=== PATIENT | male | born 1970 | race Caucasian/White ===

== ENCOUNTER 2019-09-07 12:37 | Emergency (ER) | payer OTHER, SELFPAY | END 2019-09-07 13:55 | disposition home or self-care (01) | PROVIDERS: Emergency Provider Nurse Practitioner Family; Family Provider Internal Medicine; Visit Provider Nurse Practitioner Family | DX: M77.9 Enthesopathy, unspecified (principal) | CPT/HCPCS: 73030; 93005; 96372; 99284; J1100; J1885 ==

== ENCOUNTER 2019-09-09 11:09 | Emergency (ER) | payer SELFPAY | END 2019-09-09 14:23 | disposition home or self-care (01) | PROVIDERS: Emergency Provider Physician Assistant; Family Provider Internal Medicine; Visit Provider Physician Assistant | DX: M77.9 Enthesopathy, unspecified (principal); I10 Essential (primary) hypertension; E78.5 Hyperlipidemia, unspecified; M19.90 Unspecified osteoarthritis, unspecified site; Z87.891 Personal history of nicotine dependence ==

== ENCOUNTER 2019-09-22 10:25 | Outpatient (CLI) | payer OTHER, SELFPAY ==
--- NOTE | 2019-09-22 10:41 | MR_ITS ---
WS: [id number] MRI CERVICAL SPINE NONCONTRAST TECHNIQUE: Sagittal T1, T2 and STIR imaging. Axial T2, gradient, and fiesta imaging. CLINICAL INFORMATION: CERVICAL DISC DISORDER W/RADICULOPATHY COMPARISON: None. FINDINGS: Images moderately degraded by patient motion. Straightening of the normal cervical lordosis. Disc bulging worse at C3-C4 C5-C6 and C6-7. C2-C3: Small central disc protrusion. Slight effacement of ventral thecal sac. Mild facet arthropathy . Mild left and no significant right foraminal narrowing. C3-C4: Mild disc bulging with a small central protrusion. Mild to moderate central canal stenosis. Sl ight contact of the cervical cord. Moderate right greater than left bony foraminal narrowing. Moderat e facet arthropathy. C4-C5: Left pericentral disc osteophyte protrusion with moderate central canal stenosis. Indentation left ventral cervical cord. Mild to moderate left foraminal narrowing. Moderate facet arthropathy. C5-C6: Disc osteophyte complex with mild central canal stenosis. Moderate left and no significant rig ht foraminal narrowing. Moderate facet arthropathy. C6-C7: Left proximal foraminal disc protrusion with moderate central canal stenosis. Severe left fora [place]sa narrowing. Mild right foraminal narrowing. C7-T1: Mild disc bulging with endplate ridging. Mild bilateral foraminal narrowing. MR/MR cervical spin wo con* [id number] IMPRESSION: 1. Straightening of the normal cervical lordosis. Mild to moderate central can al stenosis due to small disc protrusions at C3-C4 left C4-C5 and left C6-C7. 2. Left proximal foraminal disc protrusion C6-C7 extends into the left neural foramen with severe left foraminal narrowing. 3. Left pericentral disc protrusion C4-C5 with contact and slight indentation left ventral cervical cord. 4. Otherwise multilevel bony foraminal narrowing described above.
== END 2019-09-22 10:26 | disposition home or self-care (01) ==
LOC: RADSHAW 10:28
PROVIDERS: Family Provider Internal Medicine; PCP Internal Medicine; Visit Provider Internal Medicine
DX: M50.223 Other cervical disc displacement at C6-C7 level (principal); M50.10 Cervical disc disorder with radiculopathy, unspecified cervical region
CPT/HCPCS: 72141

== ENCOUNTER 2020-09-09 11:43 | Outpatient (CLI) | payer OTHER, SELFPAY ==
--- NOTE | 2020-09-09 11:56 | XR_ITS ---
WS: [id number] Exam: XR ribs LT 2V* [id number] Date/Time of Exam: 09/09/2020 12:10 PM Reason For Exam: t No acute left rib fracture. The lungs are clear and fully expanded. No pulmonary or pleural reactive changes. Normal cardiomediastinal structures. XR/XR ribs LT 2V* [id number] IMPRESSION: 1. Negative left rib study
== END 2020-09-09 11:44 | disposition home or self-care (01) ==
PROVIDERS: PCP Internal Medicine; Visit Provider Family Medicine
DX: S27.9XXA Injury of unspecified intrathoracic organ, initial encounter (principal); X58.XXXA Exposure to other specified factors, initial encounter
CPT/HCPCS: 71100

== ENCOUNTER → 2021-03-23 15:34 | Outpatient (BNVA) | payer OTHER, SELFPAY | PROVIDERS: PCP Internal Medicine; Visit Provider Nurse Practitioner Family | DX: Z11.52 Encounter for screening for COVID-19 (principal); Z20.822 Contact with and (suspected) exposure to COVID-19 | CPT/HCPCS: 87635 ==

== ENCOUNTER 2021-03-31 18:35 | Emergency (ER) | payer OTHER, SELFPAY ==
[2021-03-31 19:10] VITALS: BP 102/67; PULSE 78; RESP 22; TEMP 38.9; O2SAT 94; BMI 35.6
--- NOTE | 2021-03-31 20:49 | XRR_ITS ---
PROCEDURE INFORMATION: Exam: XR Chest Exam date and time: 03/31/2021 8:49 PM Age: 50 years old Clinical indication: Cough and shortness of breath; Patient HX: Covid +, cough, SOB, fever, weakness TECHNIQUE: Imaging protocol: XR of the chest. Views: 1 view. COMPARISON: CR Chest 1 [place] [id number] 09/09/2019 12:04 PM FINDINGS: Lungs: Patulous basilar consolidations. Pleural spaces: Unremarkable. No pleural effusion. No pneumothorax. Heart/Mediastinum: Unremarkable. No cardiomegaly. Bones/joints: Sequela of ACDF in the lower cervical spine. XR/XR chest 1V portable [id number] IMPRESSION: Patulous basilar consolidations consistent with COVID pneumonia.
--- NOTE | 2021-03-31 20:49 | ECG_ITS ---
[facility] Test Date: 2021-03-31 Pat Name: Khang Lui Department: Room: Gender: Male [employer] Computer: : [id number] Requested By: John Jeter Order Number: [id number] Fine MD: Philippe Lepe M.D. Measurements Intervals [place] Rate: 73 P: 73 FL: 161 QRS: 89 QRSD: 111 T: 87 QT: 385 QTc: 425 Interpretive Statements SINUS RHYTHM MODERATE INTRAVENTRICULAR CONDUCTION DELAY [110+ ms QRS DURATION] WARNING: DATA QUALITY MAY AFFECT INTERPRETATION Compared to ECG 09/09/2019 13:30:24 Intraventricular conduction delay now present Electronically Signed On 04-01-2021 14:53:53 CDT by Philippe Lepe M.D. [id number]
--- NOTE | 2021-03-31 20:50 | ED_ITS ---
HPI - COVID General: Chief Complaint: COVID symptoms Stated Complaint: COVID +/TROUBLE WALKING,WEAKNESS Time Seen by Provider: 03/31/21 20:47 Triage information: Has fever, cough or shortness of breath . Exposure to COVID + person last 14 days History of Present Illness: HPI Narrative: This patient is a 50-year-old male who presents to the emergency department complaining of severe fatigue states he is so fatigued now that he can hardly walk. Patient states he was diagnosed with Covid 1 week ago. Still has persistent cough. States lack of energy and intermittent fevers. Will do medical evaluation treat as needed complaint: known COVID positive COVID 19 common symptoms: positive fever(s), non-productive cough, fatigue and body aches; negative chills, productive cough, dyspnea, headache(s), throat pain, nausea or vomiting COVID 19 other sytmptoms: negative chest pain COVID Results: SARS-CoV-2 RNA (RT-PCR) Detected (NOT DETECTED) A 03/23/21 15:34 03/23/21 Review of Systems General: Reports: 10 or more systems reviewed and unremarkable except in HPI and below Const: Reports: fever(s), body aches and fatigue; Denies: chills Eyes: Denies: change in vision or blurry vision ENMT: Denies: throat pain, hoarseness or mouth pain Card: Denies: chest pain, palpitations, irregular heart rhythm, edema, swelling of feet/ankles or lightheadedness Resp: Reports: non-productive cough; Denies: dyspnea, productive cough, wheezing or pain on inspiration GI: Denies: abdominal pain, nausea or vomiting : Denies: flank pain, dysuria, urinary frequency, urinary urgency or urinary hesitancy Musc: Denies: neck pain, back pain, extremity pain, extremity swelling, joint pain, joint swelling, joint redness, joint warmth or limited range of motion Skin/Breast: Denies: rash, pruritus, erythema or skin tenderness Neuro: Denies: headache(s), numbness in extremities or weakness in extremities Psych: Denies: anxiety or depression PFS ED PFSH: Social History Smoking and tobacco status: current every day smoker smokeless tobacco Second hand smoke exposure: No Alcohol intake: never Desire information about alcohol rehabilitation?: No Desire information about substance/drug rehabilitation?: No Physical Exam Const: COMMON NORMALS: no acute distress, average body habitus, patient oriented x3, no limitations, healthy appearing, alert and well nourished HENMT: COMMON NORMALS: normocephalic, atraumatic, hearing grossly normal bilaterally, external ears normal, EAC's normal, TM's normal bilaterally, Normal external nose present, Normal nasal mucous membranes and turbinates present, moist oral mucous membranes, oropharynx normal, dentition normal and gingiva normal HEAD & SCALP: normocephalic and atraumatic NOSE: Normal external nose present and Normal nasal mucous membranes and turbinates present EXTERNAL EAR: Yes external ears normal EXTERNAL AUDITORY CANAL: EAC's normal TYMPANIC MEMBRANE: TM's normal bilaterally Neck/C-Spine: COMMON NORMALS: full ROM, no lymphadenopathy, supple, no meningeal signs, no JVD, Thyroid normal and No carotid bruits THYROID: Thyroid normal Chest: COMMONS NORMALS: normal inspection of the chest, normal palpation of entire chest wall, normal inspection of the breasts and normal palpation of the breasts Breast/axilla inspection: Yes normal inspection of the breasts BREAST/AXILLA PALPATION: Yes normal palpation of the breasts Resp: COMMON NORMALS: normal respiratory effort, No retractions, No use of accessory muscles, clear to auscultation bilaterally and percussion normal AUSCULTATION: clear to auscultation bilaterally PERCUSSION: percussion normal Cardio: COMMON NORMALS: no JVD, regular rate, regular rhythm, S1 normal heart sound present, S2 normal heart sound present, No gallops present (Cardio), No clicks present (Cardio), No murmurs present (Cardio), No rub (Cardio) and Peripheral pulses 2+ throughout RATE: regular rate RHYTHM: regular rhythm HEART SOUNDS: S1 normal heart sound present and S2 normal heart sound present PERIPHERAL PULSES: Peripheral pulses 2+ throughout GI: COMMON NORMALS: Normal to inspection, nondistended, normoactive bowel sounds present, Soft to palpation, non-tender, No hepatosplenomegaly present, no masses and no bruits PALPATION: Yes Soft to palpation and Yes No hepatosplenomegaly present : COMMON NORMALS: Yes no CVA tenderness BLADDER/KIDNEY EXAM: Yes no CVA tenderness Back/Pelvis: COMMON NORMALS: no CVA tenderness, thoracic and lumbar spine normal to inspection, no thoracic nor lumbar tenderness, thoraco-lumbar ROM normal and straight leg raise negative bilaterally Extremity: COMMON NORMALS: normal to inspection, full ROM, capillary refill normal, no joint enlargement, no clubbing, cyanosis or edema, no calf tenderness and no pedal edema Neuro: COMMON NORMALS: patient oriented x3 SENSORIUM/ORIENTATION: Yes alert MENINGEAL SIGNS: Yes no meningeal signs Course Reevaluation(s): Reevaluation #1: Patient does have Covid infection that he has had for the past week. Patient is viral syndrome. Patient is encouraged p.o. fluids cool-mist humidifier as needed take all medications as instructed follow-up with PCP after quarantine is over and symptom-free. May return to the emergency department if needed. Time: 22:32 Vital Signs: Vital signs: Vital Signs Temperature 102.1 F H 03/31/21 19:10 Pulse Rate 76 03/31/21 21:29 Respiratory Rate 20 H 03/31/21 21:29 Blood Pressure 137/81 03/31/21 21:29 Pulse Oximetry 96 03/31/21 21:29 MDM - COVID MDM Narrative: Medical decision making narrative: Patient does have Covid infection that he has had for the past week. Patient is viral syndrome. Patient is encouraged p.o. fluids cool-mist humidifier as needed take all medications as instructed follow-up with PCP after quarantine is over and symptom-free. May return to the emergency department if needed. Differential Diagnosis: Differential diagnosis: Likely COVID 19, other viral infection and pneumonia Medical Records: Attestation: I reviewed the patient's medical records. Lab Data: Attestation: I reviewed the patient's lab results. Labs: Lab Results 03/31/21 03/31/21 03/31/21 Range/Units 21:28 21:28 21:28 WBC 6.3 (4.0-10.0) 10^3/ uL RBC 5.49 H (4.1-5.3) 10^6/u L Hgb 17.3 H (11.7-16.6) g/dL Hct 49.8 (42.0-52.0) % MCV 90.7 (80-94) fL MCH 31.5 (28.0-34.0) pg MCHC 34.7 (30.0-36.0) g/dL RDW 12.4 (12.1-15.1) % Plt Count 201 (130-400) 10^3/c mm MPV 10.8 H (7.4-10.4) fL Neut % (Auto) 84.3 % Lymph % (Auto) 8.4 % [place] % (Auto) 6.8 % Eos % (Auto) 0.0 % Baso % (Auto) 0.2 % Neut # (Auto) 5.33 (1.8-7.7) 10^3/u L Lymph # (Auto) 0.5 L (0.8-4.8) 10^3/u L [place] # (Auto) 0.4 (0.2-0.9) 10^3/u L Eos # (Auto) 0.0 (0.0-0.8) 10^3/u L Baso # (Auto) 0.0 (0.0-0.1) 10^3/u L Nucleated RBC % (a uto) 0 % Nucleated RBCs # 0.0 /100WBC PT 13.90 (12.1-14.9) SECO NDS INR 1.03 (0.8-1.2) APTT 33.4 (23.9-36.7) SECO NDS D-Dimer 0.40 (0-0.59) ug/mIFE U Specimen Type Sample Site ABG pH (7.35-7.45) ABG pCO2 (35-45) mmHg ABG pO2 (80.0-100.0) mmH g ABG HCO3 (22-26) mmol/L ABG O2 Saturation ABG Base Excess (-2.0-2.0) mmol/ L Lenny Test A-a O2 Gradient (5-10) mmHg Hematocrit (42-52) % Hgb O2 Saturation (95-100) % Carboxyhemoglobin (0.4-20.1) %THgb Methemoglobin (0.4-1.5) % Total Hemoglobin (14-18) g/dL Ionized Calcium (1.1-1.4) mmol/L O2 Delivery Device Cloth Colorer ID Sodium 132 L (136-145) mmol/L Potassium 4.5 (3.5-5.1) mmol/L Chloride 97 L (98-107) mmol/L Carbon Dioxide 22 (22-29) mmol/L Anion Gap 17.5 (5-19) BUN 17 (6-20) mg/dL Creatinine 0.9 (0.7-1.2) mg/dL GFR Calculation 89.7 L (90-130) mL/min Glucose 94 (65-115) mg/dL Calculated Osmolal ity 275 L (285-295) mOsm/k g Calcium 8.0 L (8.5-10.5) mg/dL Total Bilirubin 0.5 (0.15-1.2) mg/dL AST 99 H (0-40) U/L ALT 88 H (0-41) U/L Alkaline Phosphata se 113 (40-130) IU/L Creatine Kinase 129 (39-308) U/L Total Protein 7.1 (6.6-8.7) g/dL Albumin 3.6 (3.5-5.2) g/dL Globulin 3.5 (1.3-4.6) g/dL 03/31/21 Range/Units 22:10 WBC (4.0-10.0) 10^3/ uL RBC (4.1-5.3) 10^6/u L Hgb (11.7-16.6) g/dL Hct (42.0-52.0) % MCV (80-94) fL MCH (28.0-34.0) pg MCHC (30.0-36.0) g/dL RDW (12.1-15.1) % Plt Count (130-400) 10^3/c mm MPV (7.4-10.4) fL Neut % (Auto) % Lymph % (Auto) % [place] % (Auto) % Eos % (Auto) % Baso % (Auto) % Neut # (Auto) (1.8-7.7) 10^3/u L Lymph # (Auto) (0.8-4.8) 10^3/u L [place] # (Auto) (0.2-0.9) 10^3/u L Eos # (Auto) (0.0-0.8) 10^3/u L Baso # (Auto) (0.0-0.1) 10^3/u L Nucleated RBC % (a uto) % Nucleated RBCs # /100WBC PT (12.1-14.9) SECO NDS INR (0.8-1.2) APTT (23.9-36.7) SECO NDS D-Dimer (0-0.59) ug/mIFE U Specimen Type Arterial Sample Site Brachial, right ABG pH 7.43 (7.35-7.45) ABG pCO2 34.5 L (35-45) mmHg ABG pO2 67.8 L (80.0-100.0) mmH g ABG HCO3 23.0 (22-26) mmol/L ABG O2 Saturation 95.3 ABG Base Excess -0.6 (-2.0-2.0) mmol/ L Lenny Test N/a A-a O2 Gradient 5.1 (5-10) mmHg Hematocrit 51.4 (42-52) % Hgb O2 Saturation 94.0 L (95-100) % Carboxyhemoglobin 0.6 (0.4-20.1) %THgb Methemoglobin 0.8 (0.4-1.5) % Total Hemoglobin 16.8 (14-18) g/dL Ionized Calcium 1.2 (1.1-1.4) mmol/L O2 Delivery Device Room air Cloth Colorer ID Hinja Sodium 132.0 (136-145) mmol/L Potassium 4.0 (3.5-5.1) mmol/L Chloride (98-107) mmol/L Carbon Dioxide (22-29) mmol/L Anion Gap (5-19) BUN (6-20) mg/dL Creatinine (0.7-1.2) mg/dL GFR Calculation (90-130) mL/min Glucose 93.0 (65-115) mg/dL Calculated Osmolal ity (285-295) mOsm/k g Calcium (8.5-10.5) mg/dL Total Bilirubin (0.15-1.2) mg/dL AST (0-40) U/L ALT (0-41) U/L Alkaline Phosphata se (40-130) IU/L Creatine Kinase (39-308) U/L Total Protein (6.6-8.7) g/dL Albumin (3.5-5.2) g/dL Globulin (1.3-4.6) g/dL Imaging Data: CXR: Attestation: I personally reviewed and interpreted this imaging study as follows: Radiologist's impression: FINDINGS: Lungs: Patulous basilar consolidations. Pleural spaces: Unremarkable. No pleural effusion. No pneumothorax. Heart/Mediastinum: Unremarkable. No cardiomegaly. Bones/joints: Sequela of ACDF in the lower cervical spine. XR/XR chest 1V portable [id number] IMPRESSION: Patulous basilar consolidations consistent with COVID pneumonia. EKG Data: EKG 1: Attestation: I personally reviewed and interpreted this EKG as follows: EKG interpretation date: 03/31/21 EKG interpretation time: 22:10 Prior EKG tracings: not available for review Interpretation: Sinus rhythm heart rate 73 moderate interventricular conduction delay. COVID Results: SARS-CoV-2 RNA (RT-PCR) Detected (NOT DETECTED) A 03/23/21 15:34 03/23/21 Discharge Plan Discharge Patient Disposition: Home Clinical Impression: Upper respiratory infection, COVID-19 Condition: Stable Prescriptions: No Action methocarbamol [Robaxin-750] 750 mg tablet 750 mg PO TID 6 Days Qty: 18 RF: 0 baclofen 10 mg tablet 10 mg PO TID RF: 0 gabapentin 300 mg tablet 300 mg PO BID RF: 0 ketorolac 10 mg tablet 10 mg PO TID PRN (Reason: pain) 5 Days Qty: 15 RF: 1 Discharge Orders: Discharge ED (Routine); Ordered 03/31/21 Ordered By: John Jeter Referrals: Eduarda Price MD [Primary Care Provider] - Discharge Diet: Advance as tolerated Discharge Activity: Resume usual activity Patient Instructions: Opioid Safety Activity Restrictions/Additional Instructions: Patient is encouraged p.o. fluids cool-mist humidifier as needed take all medications as instructed follow-up with PCP after quarantine is over and symptom-free. May return to the emergency department if needed. Coding Level of Care Code ED Contract Associate for [employer] F[employer] Exam Comprehensive
[2021-03-31 21:28] VITALS: O2SAT 95
[2021-03-31 21:29] VITALS: BP 137/81; PULSE 76; RESP 20; O2SAT 96
[2021-03-31] MEDS: sodium chloride 0.9% 1,000 ML 999 ML IV (21:30)
[2021-03-31 21:32] LABS: Basophils % 0.2 %; Hematocrit 49.8 % (42.0-52.0); Hemoglobin 17.3 g/dL (11.7-16.6); Lymphocytes # 0.5 10^3/uL (0.8-4.8); Lymphocytes % 8.4 %; Mean Corpuscular HGB Conc 34.7 g/dL (30.0-36.0); Mean Corpuscular Hemoglobin 31.5 pg (28.0-34.0); Mean Corpuscular Volume 90.7 fL (80-94); Mean Platelet Volume 10.8 fL (7.4-10.4); Monocytes # 0.4 10^3/uL (0.2-0.9); Monocytes % 6.8 %; Neutrophils # 5.33 10^3/uL (1.8-7.7); Neutrophils % 84.3 %; Nucleated Red Blood Cells % 0 %; Platelet Count 201 10^3/cmm (130-400); Red Blood Count 5.49 10^6/uL (4.1-5.3); Red Cell Distribution Width 12.4 % (12.1-15.1); White Blood Count 6.3 10^3/uL (4.0-10.0)
[2021-03-31 21:54] LABS: INR 1.03 (0.8-1.2)
[2021-03-31 21:55] LABS: Partial Thromboplastin Time 33.4 SECONDS (23.9-36.7)
[2021-03-31 21:58] LABS: Alanine Aminotransferase 88 U/L (0-41); Albumin Level 3.6 g/dL (3.5-5.2); Alkaline Phosphatase 113 IU/L (40-130); Anion Gap 17.5 (5-19); Aspartate Amino Transferase 99 U/L (0-40); Blood Urea Nitrogen 17 mg/dL (6-20); Carbon Dioxide 22 mmol/L (22-29); Chloride 97 mmol/L (98-107); Creatine Phosphokinase 129 U/L (39-308); Globulin 3.5 g/dL (1.3-4.6); Glomerular Filtration Rate 89.7 mL/min (90-130); Glucose 94 mg/dL (65-115); Osmolality Calculated 275 mOsm/kg (285-295); Potassium 4.5 mmol/L (3.5-5.1); Sodium 132 mmol/L (136-145); Total Bilirubin 0.5 mg/dL (0.15-1.2); Total Protein 7.1 g/dL (6.6-8.7)
[2021-03-31 22:14] LABS: ABG PCO2 34.5 mmHg (35-45); ABG PH Result 7.43 (7.35-7.45); Alveolar-Arterial Oxygen Gradi 5.1 mmHg (5-10); Arterial Blood Gas Hematocrit 51.4 % (42-52); Base Excess ABG -0.6 mmol/L (-2.0-2.0); Blood Gas Sample Site Brachial, right; Blood Gas Sample Type Arterial; Carboxyhemoglobin 0.6 %THgb (0.4-20.1); Ionized Calcium Level - ABG 1.2 mmol/L (1.1-1.4); Methemoglobin 0.8 % (0.4-1.5); Oxygen Device ROOM AIR; Oxygen Saturation ABG 95.3; PO2 ABG 67.8 mmHg (80.0-100.0); Total Hemoglobin 16.8 g/dL (14-18)
[2021-03-31 22:53] VITALS: BP 128/79; PULSE 79; O2SAT 96
== END 2021-03-31 22:53 | disposition home or self-care (01) ==
PROVIDERS: Emergency Provider Emergency Medicine; PCP Family Medicine
DX: U07.1 COVID-19 (principal); J06.9 Acute upper respiratory infection, unspecified; F17.200 Nicotine dependence, unspecified, uncomplicated
CPT/HCPCS: 36600; 71045; 80051; 80053; 82330; 82550; 82805; 85025; 85378; 85610; 85730; 93005; 96360; 99283; J7030

== ENCOUNTER 2022-10-16 18:46 | Emergency (ER) | payer OTHER, SELFPAY ==
[2022-10-16 18:52] VITALS: BP 165/99; PULSE 72; RESP 16; TEMP 37.3; O2SAT 100; BMI 36.9
--- NOTE | 2022-10-16 19:02 | ED_ITS ---
HPI - Back Pain/Injury General: Chief Complaint: Back Pain/Injury Stated Complaint: Injury Lower Back Time Seen by Provider: 10/16/22 19:02 History of Present Illness: Patient comes in today with complaints of mid to low back pain. Patient states that he was working on a tractor since about noon today and had worsening back pain. Patient has had prior episodes of back discomfort. Patient taken some Aleve without any relief of his pain. Patient appears in moderate pain. Patient appears nontoxic. Patient denies any loss of bowel or bladder control. Patient reports no fever. Review of Systems General: Reports: 10 or more systems reviewed and unremarkable except in HPI and below Musc: Reports: back pain PFSH ED PFSH: Social History Smoking and tobacco status: never smoked Second hand smoke exposure: No Alcohol intake: never Desire information about alcohol rehabilitation?: No Desire information about substance/drug rehabilitation?: No Physical Exam Const: COMMON NORMALS: alert Neck/C-Spine: COMMON NORMALS: full ROM Resp: COMMON NORMALS: normal respiratory effort and clear to auscultation bilaterally AUSCULTATION: clear to auscultation bilaterally Cardio: COMMON NORMALS: regular rate and regular rhythm RATE: regular rate RHYTHM: regular rhythm GI: COMMON NORMALS: non-tender Back/Pelvis: THORACIC SPINE/UPPER BACK: Yes thoracic spinal tenderness T-spine tenderness location: T12 LUMBAR SPINE/LOWER BACK: Yes lumbar spinal tenderness Lumbar spinal tenderness location: L1 and L2 Extremity: COMMON NORMALS: full ROM Neuro: SENSORIUM/ORIENTATION: Yes alert Skin: COMMON NORMALS: turgor normal GENERAL SKIN EXAM: turgor normal Course Vital Signs: Vital signs: Vital Signs Temperature 99.1 F 10/16/22 18:52 Pulse Rate 72 10/16/22 18:52 Respiratory Rate 16 10/16/22 18:52 Blood Pressure 165/99 10/16/22 18:52 Pulse Oximetry 100 10/16/22 18:52 Oxygen Delivery Me thod 10/16/22 18:52 MDM - Back Pain/Injury Medical Decision Making 52-year-old male patient comes in today with complaints of back pain. On exam patient has spinal tenderness between T11 and L2. Some mild muscle tenderness is noted on palpation. Normal range of motion of the extremities are noted. Abdomen soft nontender. Skin is warm and dry. Vital signs are normal. Differential diagnosis includes intervertebral disc disease, facet arthropathy, muscle strain. Suspect patient probably has some intervertebral disc disease as the pain was exacerbated by working a tractor today. Reviewed exam with patient with recommendations for treatment and follow-up with primary care. Patient reported understanding agreed to plan. Discharge Plan Discharge Patient Disposition: Home Clinical Impression: Intervertebral disc degeneration Qualifiers: Spinal region: thoracolumbar Qualified Code(s): M51.35 - Other intervertebral disc degeneration, thoracolumbar region Condition: Stable Prescriptions: New diclofenac potassium 50 mg tablet 50 mg PO TID PRN (Reason: pain) Qty: 15 0RF hydrocodone-acetaminophen 5-325 mg tablet 1 tab PO Q8H PRN (Reason: pain (scale score 7-10)) Qty: 9 0RF Discontinued methocarbamol [Robaxin-750] 750 mg tablet 750 mg PO TID 6 Days Qty: 18 0RF baclofen 10 mg tablet 10 mg PO TID ketorolac 10 mg tablet 10 mg PO TID PRN (Reason: pain) 5 Days Qty: 15 1RF zlcocdlm-efooxgtkm-OC 3.5-10,000-1 mg/mL-unit/mL-% drops,suspension 4 drp otic (ear) TID 5 Days Qty: 10 0RF No Action gabapentin 300 mg tablet 300 mg PO BID Discharge Orders: Discharge ED (Routine); Ordered 10/16/22 Ordered By: Imer Pickett Referrals: Eduarda Price MD [Primary Care Provider] - Discharge Diet: Usual diet Discharge Activity: Increase activity as tolerated Patient Instructions: Back Pain (ED), Opioid Safety Activity Restrictions/Additional Instructions: Activity as tolerated. Gentle stretching and range of motion activity. Try to maintain normal activity without over work over straining the muscles. Drink plenty of water with medication. Use acetaminophen and diclofenac to control pain. Use hydrocodone for severe pain. Follow-up with primary care for persistent symptoms. Return to ER for new concerns or worsening symptoms such as loss of bowel or bladder control, high fever, or uncontrolled use of the legs. Coding Level of Care Code ED [employer] Consultant for Gregg Moreira
[2022-10-16] MEDS: ketorolac 30 mg/mL INJ IM (19:22)
[2022-10-16] MEDS: HYDROcodone-acetaminophen 10-325 mg Tablet 1 TAB PO (19:22)
== END 2022-10-16 19:43 | disposition home or self-care (01) ==
PROVIDERS: Emergency Provider Nurse Practitioner Family; PCP Family Medicine
DX: M51.35 Other intervertebral disc degeneration, thoracolumbar region (principal)
CPT/HCPCS: 96372; 99284; J1885

== ENCOUNTER 2023-02-01 10:06 | Outpatient (CLI) | payer OTHER, SELFPAY ==
--- NOTE | 2023-02-01 10:46 | XR_ITS ---
WS: [id number] Right knee, 3 views, 02/01/2023 Clinical Data: Fell on knee Comparison: None. Findings: No fractures or dislocations are seen. There is medial joint compartment narrowing with spurs of the medial and lateral femoral condyle and medial tibial plateau. There is minimal spurring of the technician automatic ior right patella.. The soft tissues are unremarkable. 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
== END 2023-02-01 10:07 | disposition home or self-care (01) ==
PROVIDERS: PCP Family Medicine; Visit Provider Nurse Practitioner Family
DX: M17.11 Unilateral primary osteoarthritis, right knee (principal)
CPT/HCPCS: 73562

== ENCOUNTER → 2023-05-17 14:34 | Outpatient (BNVA) | payer OTHER, SELFPAY | PROVIDERS: PCP Family Medicine; Visit Provider Nurse Practitioner Family | DX: R39.9 Unspecified symptoms and signs involving the genitourinary system (principal) | CPT/HCPCS: 81000; 87086; 87491; 87591 ==

== ENCOUNTER → 2023-07-24 08:29 | Outpatient (BNVA) | payer OTHER, SELFPAY | PROVIDERS: PCP Family Medicine; Visit Provider Family Medicine | DX: R39.9 Unspecified symptoms and signs involving the genitourinary system (principal) | CPT/HCPCS: 81000 ==

== ENCOUNTER 2025-03-10 05:00 | Outpatient (RCR) | payer OTHER, SELFPAY | END 2025-04-09 23:59 | disposition home or self-care (01) | LOC: SPT 05:00 | PROVIDERS: Visit Provider Physician Assistant Surgical | DX: Z98.890 Other specified postprocedural states (principal) | CPT/HCPCS: 97110; 97161 ==

== ENCOUNTER 2025-04-10 05:00 | Outpatient (RCR) | payer OTHER, SELFPAY | END 2025-05-10 23:59 | disposition home or self-care (01) | LOC: SPT 05:00 | PROVIDERS: Visit Provider Physician Assistant Surgical | DX: Z98.890 Other specified postprocedural states (principal) | CPT/HCPCS: 97110 ==

== ENCOUNTER 2025-05-11 05:00 | Outpatient (RCR) | payer OTHER, SELFPAY | END 2025-05-21 09:35 | disposition home or self-care (01) | LOC: SPT 05:00 | PROVIDERS: Visit Provider Physician Assistant Surgical | DX: Z98.890 Other specified postprocedural states (principal) | CPT/HCPCS: 97110 ==